=== PATIENT | male | born 1930 | race Caucasian/White ===

== ENCOUNTER 2016-11-19 13:49 | Emergency (ER) | payer MEDICARE, BC ==
[2016-11-19] MEDS ORDERED: HYDROmorphone 2 MG/ML SDV IM ONE (14:11)
[2016-11-19] MEDS ORDERED: Metoclopramide 10 MG/2 ML SDV SUBCUT ONE (14:12)
[2016-11-19] MEDS ORDERED: Metoclopramide 10 MG/2 ML SDV IV ONE (15:05)
[2016-11-19] MEDS ORDERED: fentaNYL 100 MCG/2 ML SDV IVPUSH ONE (15:06)
[2016-11-19] MEDS ORDERED: Sodium Chloride 0.9% 500 ML IV ONE (15:08)
[2016-11-19] MEDS ORDERED: Ketorolac 30 MG/ML SDV ONE (15:22)
[2016-11-19] MEDS ORDERED: Ketorolac 30 MG/ML SDV IVPUSH ONE (15:33)
[2016-11-19] MEDS ORDERED: Sodium Chloride 0.9% 1,000 ML IV SCH (15:38)
[2016-11-19] MEDS ORDERED: Sodium Chloride 0.9% 250 ML IV SCH (15:45)
--- NOTE | 2016-11-19 15:56 | CR ---
INDICATION: Fell 5-6 feet, picking apples. PELVIS WITH LEFT HIP: Frontal view of the pelvis with frontal and lateral views of the left hip revealed fractures through the superior and inferior pubic rami on the left. The inferior pubic ramus fracture appears to be somewhat comminuted, with an additional fracture site closer to the acetabulum - fracture in two places, which is severely overridden. The more proximal - medial inferior pubic fracture site appears to be in adequate position and alignment. At the superior pubic ramus fracture there is at least 1 cm cranial offset of the lateral fracture fragment. The hip joint itself, showed no evidence of fracture or dislocation, with intact appearing femurs bilaterally. Degenerative changes are noted at the hip joints with the joint space on the left very minimally diminished. Hypertrophic changes at both hip joints are noted. Overall, there appears to be some demineralization, suggesting osteoporosis - correlate clinically. Severe degenerative disk disease and moderate hypertrophic degenerative changes are noted in the visualized lumbosacral spine. IMPRESSION: 1. Fractures with deformity inferior pubic ramus. 2. Fracture with deformity superior pubic ramus. 3. Osteoarthritis hip joints with mild loss of joint space cranial laterally on the left. 4. Demineralization suggested, compatible with osteoporosis - correlate clinically. 5. Degenerative changes and disk disease visualized lumbosacral spine, L4-5, L5 -S1. 6. ASD with iliac and femoral artery calcifications. MTDD
[2016-11-19] MEDS ORDERED: Phytonadione 5 MG in Sodium Chloride 0.9% 50 ML IV ONE (15:59)
--- NOTE | 2016-11-19 16:10 | CR ---
INDICATION: Fell 5-6 feet, picking apples. LEFT SHOULDER: Three views of the left shoulder were obtained, 11/19/2016, and compared with a chest x-ray from 12/16/2013. There is an appearance of advancing hypertrophic degenerative changes with joint space loss at the glenohumeral joint. There also appears to be advancing impingement of the humerus on the acromion with slight sclerosis at the undersurface of the acromion and cranial deviation of the humerus with respect to the acromion and glenohumeral joint. A definite fracture or dislocation was not identified. The bones appear to be somewhat porotic, suggesting the possibility of demineralization - osteoporosis - osteomalacia. There are probable old healed rib fractures at the 2nd and 6th left ribs, which were apparently present on the previous examination of the chest in 2013. IMPRESSION: Progressive degenerative changes and probable impingement, suggesting rotator cuff degeneration and/or injury. MTDD
[2016-11-19] MEDS ORDERED: Potassium Chloride 10 MEQ in Premix Bag 1 BAG IV ONE (16:11)
[2016-11-19] MEDS ORDERED: Potassium Chloride 100 ML ONE (16:57)
[2016-11-19 17:43] VITALS: BP 76/49
--- NOTE | 2016-11-22 09:43 | ER ---
DATE SEEN: 11/19/2016 CHIEF COMPLAINT: Left shoulder and hip pain after having fallen from an apple tree, 5-6 feet from a step ladder while picking apples. The patient lay on the ground. He was sweating, diaphoretic, lightheaded, and denies chest pain, shortness of breath, cough or chest wall discomfort or abdominal discomfort or cervical, thoracic, or lumbar spine pain. He has marked pain in his left hip and less pain in his shoulder. Denies any paresis in left upper extremity. PAST MEDICAL HISTORY: Significant for hypokalemia, inguinal herniorrhaphy, chronic atrial fibrillation, and uses warfarin on daily basis for his atrial fibrillation. 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 PAST SURGICAL HISTORY: Cataract surgery, colonoscopy, left shoulder surgery, GERD, and venous thromboembolism. ALLERGIES: Acetaminophen and hydrocodone bitartrate. REVIEW OF SYSTEMS: HEENT: Decreased vision. Decreased hearing. Denies headache, denies difficulty swallowing. No dental complaints. No jaw complaints. CARDIORESPIRATORY: Has irregular heartbeat and is on an anticoagulant, Warfarin. Denies shortness of breath or chest pain, but he does have an irregular heartbeat. Denies dizziness, syncope, or presyncope symptoms. GASTROINTESTINAL: Denies GERD, constipation, blood in the stool, black tarry stool, change in bowels, or diarrhea. : No prostatism, has increased nocturia, but denies difficulty passing urine. MUSCULOSKELETAL: Negative except for arthritis. NEURO: Negative. No previous stroke or seizure or head injury. PHYSICAL EXAMINATION: VITAL SIGNS: Blood pressure 120/65, heart rate 86 irregularly irregular, respirations 16, oxygen saturation 94%, and temperature is 36.3 degrees centigrade. GENERAL: Alert man, in mild distress. He wants more pain medicines for his shoulder and his hip. As the time proceeded, his hip pain became more and more uncomfortable compared to his left shoulder. HEENT: PERRLA intact. Pharynx without abnormality. No gag. No abnormality. The uvula is midline. No bruits in neck. LUNGS: Clear without rales, rhonchi, or wheezes. HEART: S1, S2. There is irregularly irregular rhythm. ABDOMEN: Soft. No guarding. No discomfort. No splenomegaly. No chest wall discomfort. No organomegaly in the abdomen. LOWER EXTREMITIES: No external rotation of the left hip. Dorsalis pedis intact. Can move his knee, but it causes severe pain in his left hip. Right leg with dorsalis pedis intact. Deep tendon reflexes symmetrical in upper and lower extremities. Cranial nerves 2 through 12 intact. EKG: He has several EKGs performed with old inferior infarct and anterior infarct with poor R-wave progression. He has new anterior wall anteroseptal ischemia compared to his previous EKG, 12/16/2013. Occasional PVC. Atrial fibrillation, noted. Heart rate 129. IMAGING: X-ray reveals an anterior pillar fracture with the acetabulum intact, femoral head intact, and no femoral fracture. This has broken the pelvis away from the medial, superior, and inferior pubis ramus. This is displaced by 11 mm superiorly. It is a partial open book fracture. I did not see any fracture to the sacrum. LABORATORY FINDINGS: Hemoglobin 15.4, white count 14,800, PMNs 84, bands 1, lymphocytes 13, monocytes 1. INR 1.86, PT 29.5. Sodium 139, potassium 3.3, chloride 99, GFR 57, glucose 147, bilirubin 1.5. AST is 47. ALT slightly elevated at 35. Remainder of automated chemistry, TSH is 2.77. DIAGNOSIS: 1. Partial open book fracture with risk for extensive blood loss because of anticoagulation. He already has blood pressures dropped to the 90s over 60s. His blood pressure was normal when he came in, it was 120/65. 2. New ischemia pattern, left lateral wall and anteroseptal wall. 3. 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 4. Gastroesophageal reflux disease. 5. Previous history of venous thromboembolism. He is on anticoagulants for his atrial fibrillation and venous sinus thromboembolism. 6. Previous shoulder surgery. 7. Cataract surgery. 8. Colonoscopy. 9. Presently he has hypokalemia. ER COURSE: 1. The patient was given Dilaudid; pressure dropped. It is indeterminate if his pressure dropped because of his Dilaudid or if there is bleeding from the anticoagulants and also extensive open fracture, I believe it is the latter. 2. The patient received 10 mEq of potassium IV, in a rider. 3. The patient was flushed with a liter and a half of fluid. 4. Typed and crossed for blood and given a unit of blood. The ambulance had to leave early, and by the time the O-positive blood was ordered, the typed and crossed unit was ready. Other information: He is status post skin graft, left lower extremity, years ago, and his status was discussed with Dr. Castellano, ER physician, at 1213 hours. The patient has received 5 mg of vitamin K IV infusion started. Time table - [address]. /[id number] [id number] SINA/ERNESTO
== END 2016-11-19 17:05 ==
LOC: FB.ED 13:49
DX: S32.502A Unspecified fracture of left pubis, initial encounter for closed fracture (principal); K21.9 Gastro-esophageal reflux disease without esophagitis; M16.12 Unilateral primary osteoarthritis, left hip; I48.91 Unspecified atrial fibrillation; E87.6 Hypokalemia; Z98.49 Cataract extraction status, unspecified eye; W19.XXXA Unspecified fall, initial encounter; Z79.01 Long term (current) use of anticoagulants
CPT/HCPCS: 36415; 36430; 73030; 73501; 80053; 84443; 84484; 85025; 85610; 86850; 86900; 86901; 86920; 86922; 93005; 96361; 96365; 96372; 96374; 96375; 99285; J1170; J1885; J2765; J3430; J3480; J7040; J7050; P9016; 99284

== ENCOUNTER 2016-11-24 10:18 | Inpatient (IN) | payer MEDICARE, BC ==
[2016-11-24] MEDS ORDERED: Warfarin Sliding Scale PO SCH (16:45)
--- NOTE | 2016-11-24 20:00 | PCM.HP ---
H&P History of Present Illness - General Date of Service: 11/24/16 Admit Problem/Dx: Admission Diagnosis/Problem Admission Diagnosis/Problem Weakness Source of Information: Patient, Old Records - History of Present Illness Initial Comments - Free Text/Narative: Patient is an 86-year-old male who was picking apples for maturity on a ladder and he fell onto the left side of his body. He sustained a left superior and inferior pubic ramus fractures and left ischial fractures as well as a rectal sheath hematoma. He was hospitalized from 11/19/2016 until today 1018 when he was discharged to return here for physical therapy and occupational therapy. He also sustained a left scapular fracture. He is currently feeling very well considering everything is been through. When at rest he has no pain. He is uncomfortable with movement but has been doing well standing on his own and adjusting himself in bed. Left shoulder Pain Score (Numeric/FACES): 2 Pelvic area Pain Score (Numeric/FACES): 2 - Related Data Allergies/Adverse Reactions: Allergies Allergy/AdvReac Type Severity Reaction Status Date / Time acetaminophen Allergy Hives Verified 11/24/16 15:02 hydrocodone bitartrate Allergy NAUSEA, Verified 11/24/16 15:02 [From Lortab] VOMITING Home Medications: Home Meds Aspirin [Mariel Chewable Aspirin] 81 mg PO DAILY 07/18/13 [History] Calcium Carb & Citrate/Vit D3 [Calcium + D3 ER Tablet] 1 each PO DAILY 07/18/13 [History] Finasteride [Proscar] 5 mg PO DAILY 07/18/13 [History] Flaxseed Oil [Flaxseed] 1,000 mg PO BEDTIME 07/18/13 [History] Gluc 2KCl/Chondr/Noe Hy/Hy Ac [Glucosamine & Chondroitin Cap] 1 each PO BID 12/21 [History] Multivitamin [Multivitamins] 1 each PO DAILY 07/18/13 [History] C[place]ton-3 Fatty Acids [[place]ton-3] 1,000 mg PO WITHDINNER 07/18/13 [History] Omeprazole 20 mg PO ACDINNER 07/18/13 [History] Triamterene/Hydrochlorothiazid [Triamterene-HCTZ 37.5-25 MG] 1 cap PO DAILY 12/21 [History] Vitamin E 200 units PO DAILY 12/11/13 [History] Warfarin Sodium [Jantoven] 7.5 mg PO SUMOWEFR 01/17/14 [History] Docusate Sodium 200 mg PO DAILY 11/25/14 [History] Furosemide 40 mg PO DAILY@1800 11/25/14 [History] Alfuzosin HCl [Alfuzosin HCl ER] 20 mg PO Q48H 11/19/16 [History] Carboxymethylcellulose Sodium [Refresh Tears] 1 drop EYEBOTH DAILY PRN 11/24/16 [History] Ibuprofen 400 mg PO Q6H PRN 11/24/16 [History] Triamcinolone Acetonide [Triamcinolone Acetonide 0.025%] 1 applic TOP BID PRN [History] Warfarin [Coumadin] 5 mg PO TUTHSA 11/24/16 [History] oxyCODONE 5 mg PO Q4H PRN 11/24/16 [History] Past Medical History HEENT History: Reports: Cataract, Hard of Hearing Other HEENT History: has bilat hearing aids. Only wears when goes to [employer]..not present with patient Cardiovascular History: Reports: Afib, Hypertension Other Gastrointestinal History: PRESENT LEFT HERNIA BULDGE Genitourinary History: Reports: Prostate Disorder Other Genitourinary History: PT VOICED A URGENCY WITH URINATION Musculoskeletal History: Reports: Arthritis Other Musculoskeletal History: GENERALIZED ARTHRITIS Hematologic History: Reports: Anticoagulation Therapy Other Hematologic History: takes Coumadin - Infectious Disease History Infectious Disease History: Reports: Chicken Pox, Measles, Mumps - Past Surgical History HEENT Surgical History: Reports: Cataract Surgery Other HEENT Surgeries/Procedures: bilat cataract surgery GI Surgical History: Reports: Colonoscopy, Hernia Repair/Other Male Surgical History: Reports: None Musculoskeletal Surgical History: Reports: None Dermatological Surgical History: Reports: Skin Graft, Other (See Below) Social & Family History - Family History Family Medical History: Noncontributory - Tobacco Use Smoking Status *Q: Never Smoker Second Hand Smoke Exposure: No - Caffeine Use Caffeine Use: Reports: None Other Caffeine Use: Occassional coffee drinker. - Alcohol Use Days Per Week of Alcohol Use: 1 Number of Drinks Per Day: 1 Total Drinks Per Week: 1 - Recreational Drug Use Recreational Drug Use: No - Living Situation & Occupation Living situation: Reports: (Lives with his . He is a nonsmoker, very physically active at home.) H&P Review of Systems - Review of Systems: Review Of Systems: See Below General: Reports: No Symptoms HEENT: Reports: No Symptoms Pulmonary: Reports: No Symptoms Cardiovascular: Reports: No Symptoms Gastrointestinal: Reports: No Symptoms Genitourinary: Reports: Frequency (Frequent urination at night. Does normally take his Lasix at suppertime at home so he doesn't have to pee during the day) Musculoskeletal: Reports: Shoulder Pain, Arm Pain, Leg Pain, Other (pelvic pain with movement.) Skin: Reports: Bruising (extensive.) Exam - Exam Exam: See Below - Vital Signs Vital Signs: Last Vital Signs Temp 36.7 C 11/24/16 16:00 Pulse 93 11/24/16 16:00 Resp 18 11/24/16 16:00 BP 140/71 11/24/16 16:00 Pulse Ox 98 11/24/16 16:00 Weight: 81.692 kg - Exam General: Alert, Oriented, Cooperative, Mild Distress (with movement.) HEENT: PERRLA, Conjunctiva Clear, Mucosa Moist & Christie, Posterior Pharynx Clear Neck: Supple Lungs: Clear to Auscultation, Normal Respiratory Effort Cardiovascular: Regular Rate, Regular Rhythm, Normal S1, Normal S2 GI/Abdominal Exam: Normal Bowel Sounds, Soft, Non-Tender, No Distention (Male) Exam: Scrotal Swelling (significant bruising) Back Exam: Other (bruising, tenderness over the left scapula. No midline pain to palpation.) Extremities: No Pedal Edema, Other (bruising throughout.) - Patient Data Lab Results Last 24 hrs: see previous records from [place]. *Q Meaningful Use (ADM) - VTE *Q VTE Criteria *Q: - Stroke *Q Stroke Criteria *Q: - AMI *Q AMI Criteria *Q: - Problem List (1) Pelvic fracture SNOMED Code(s): 69862769 ICD Code: S32.9XXA - FRACTURE OF UNSP PARTS OF LUMBOSACRAL SPINE AND PELVIS, INIT Status: Acute Current Visit: Yes Problem Details: PT/OT, pain management. (2) Left scapula fracture SNOMED Code(s): 6035978 ICD Code: S42.102A - FRACTURE OF UNSP PART OF SCAPULA, LEFT SHOULDER, INIT Status: Acute Current Visit: Yes Problem Details: PT/OT, pain management. (3) Weakness SNOMED Code(s): 56587389 ICD Code: R53.1 - WEAKNESS Status: Acute Current Visit: Yes Problem Details: PT/OT, patient excellent rehab candidate. (4) Chronic anticoagulation SNOMED Code(s): 080410301 ICD Code: Z79.01 - JAIL (CURRENT) USE OF ANTICOAGULANTS Status: Acute Current Visit: Yes Problem Details: Pharmacy to follow, 2-3 goal for hx of DVT. (5) Encounter for monitoring diuretic therapy SNOMED Code(s): 465622208 ICD Code: Z51.81 - ENCOUNTER FOR THERAPEUTIC DRUG LEVEL MONITORING; Z79.899 - OTHER JAIL (CURRENT) DRUG THERAPY Status: Acute Current Visit: Yes Problem Details: continue current diuretics. He would like to try taking lasix at noon for less night voiding. Not clear to me if he has CHF as not on his list. (6) BPH associated with nocturia SNOMED Code(s): 857818982 ICD Code: N40.1 - BENIGN PROSTATIC HYPERPLASIA WITH LOWER URINARY TRACT SYMP ; R35.1 - NOCTURIA Status: Acute Current Visit: Yes Problem Details: continue home meds. Problem List Initiated/Reviewed/Updated: Yes Orders Last 24hrs: Active Orders 24 hr Category Date Time Status Admission Status [Patient Status] [ADT] Routine ADT 11/24/16 13:20 Active Oxygen Therapy [RC] PRN Care 11/24/16 13:20 Active Up ad Melissa [RC] ASDIRECTED Care 11/24/16 13:20 Active VTE/DVT Education [RC] Per Unit Routine Care 11/24/16 13:20 Active Vital Signs [RC] DAILY Care 11/24/16 13:20 Active Consult to Conditioner Tumbler [CONS] Routine Cons 11/24/16 13:20 Active OT Evaluation and Treatment [CONS] Routine Cons 11/24/16 13:20 Active PT Evaluation and Treatment [CONS] Routine Cons 11/24/16 13:20 Active Regular Diet [DIET] Diet 11/24/16 Lunch Active INR,PT,PROTHROMBIN TIME [COAG] DAILY Lab 11/25/16 16:40 Ordered INR,PT,PROTHROMBIN TIME [COAG] DAILY Lab 11/26/16 16:40 Ordered INR,PT,PROTHROMBIN TIME [COAG] DAILY Lab 11/27/16 16:40 Ordered INR,PT,PROTHROMBIN TIME [COAG] DAILY Lab 11/28/16 16:40 Ordered INR,PT,PROTHROMBIN TIME [COAG] DAILY Lab 11/29/16 16:40 Ordered INR,PT,PROTHROMBIN TIME [COAG] DAILY Lab 11/30/16 16:40 Ordered INR,PT,PROTHROMBIN TIME [COAG] DAILY Lab 12/01/16 16:40 Ordered Alfuzosin [Uroxatral] Med 11/24/16 21:00 Active 10 mg PO BEDTIME Warfarin Sliding Scale [Coumadin Sliding Scale] Med 11/24/16 16:45 Pending See Dose Instructions PO ASDIRECTED Resuscitation Status Routine Resus Stat 11/24/16 16:10 Ordered Medication Orders Alfuzosin HCl (Uroxatral) 10 mg PO BEDTIME EZEQUIEL Warfarin Sodium (Coumadin Sliding Scale) 0 each PO ASDIRECTED EZEQUIEL Assessment/Plan Comment:: CODE STATUS discussed at length with the patient. This however to stop bleeding , or he were to stop beating, because of some type of illness or injury, he would not want resuscitation. No CPR, no intubation, he's ready to go "I am in the good Lord's hands." Thus DNR/DNI.
[2016-11-24] MEDS ORDERED: Carboxymethylcellulose Sodium 0.5% Ophth Soln 15 ML Bottle EYEBOTH PRN (20:03)
[2016-11-24] MEDS: Alfuzosin 10 MG Tab.ER PO SCH (20:30)
[2016-11-24] MEDS: oxyCODONE 5 MG Tab PO PRN (21:31)
[2016-11-25] MEDS: oxyCODONE 5 MG Tab PO PRN ×3 (05:14→18:20)
[2016-11-25] MEDS: Pantoprazole 40 MG Tab.CR PO SCH (08:10)
[2016-11-25] MEDS: Docusate Sodium 100 MG Cap PO SCH (08:10)
[2016-11-25] MEDS: Finasteride 5 MG Tab PO SCH (08:10)
[2016-11-25] MEDS: Hydrochlorothiazide/Triamterene 25-37.5 Tab PO SCH (08:10)
[2016-11-25] MEDS: Aspirin 81 MG Tab.Chew PO SCH (08:10)
[2016-11-25] MEDS: Furosemide 40 MG Tab PO SCH (12:22)
[2016-11-25] MEDS ORDERED: Warfarin 10 MG Tab PO SCH (16:00)
[2016-11-25] MEDS: Alfuzosin 10 MG Tab.ER PO SCH (21:37)
[2016-11-26] MEDS: oxyCODONE 5 MG Tab PO PRN ×3 (07:51→17:42)
[2016-11-26] MEDS: Pantoprazole 40 MG Tab.CR PO SCH (07:51)
[2016-11-26] MEDS: Finasteride 5 MG Tab PO SCH (09:27)
[2016-11-26] MEDS: Docusate Sodium 100 MG Cap PO SCH (09:27)
[2016-11-26] MEDS: Aspirin 81 MG Tab.Chew PO SCH (09:27)
[2016-11-26] MEDS: Hydrochlorothiazide/Triamterene 25-37.5 Tab PO SCH (09:27)
[2016-11-26] MEDS: Furosemide 40 MG Tab PO SCH (12:56)
[2016-11-26] MEDS ORDERED: Warfarin 5 MG Tab PO SCH (16:00)
[2016-11-26] MEDS: Bisacodyl 5 MG Tab PO PRN (17:42)
[2016-11-26] MEDS: Alfuzosin 10 MG Tab.ER PO SCH (20:12)
[2016-11-27] MEDS: Pantoprazole 40 MG Tab.CR PO SCH (07:36)
[2016-11-27] MEDS: oxyCODONE 5 MG Tab PO PRN ×3 (07:36→21:04)
[2016-11-27] MEDS: Hydrochlorothiazide/Triamterene 25-37.5 Tab PO SCH (08:48)
[2016-11-27] MEDS: Finasteride 5 MG Tab PO SCH (08:48)
[2016-11-27] MEDS: Aspirin 81 MG Tab.Chew PO SCH (08:48)
[2016-11-27] MEDS: Docusate Sodium 100 MG Cap PO SCH (08:48)
[2016-11-27] MEDS: Bisacodyl 5 MG Tab PO PRN (10:30)
[2016-11-27] MEDS: Furosemide 40 MG Tab PO SCH (12:39)
[2016-11-27] MEDS ORDERED: Warfarin 5 MG Tab PO SCH (16:00)
[2016-11-27] MEDS: Polyethylene Glycol 3350 Powder 17 GM Packet PO PRN (21:04)
[2016-11-28] MEDS: Pantoprazole 40 MG Tab.CR PO SCH (07:57)
[2016-11-28] MEDS: oxyCODONE 5 MG Tab PO PRN ×2 (07:57→21:55)
[2016-11-28] MEDS ORDERED: Bisacodyl 10 MG Supp RECTAL PRN (08:02)
[2016-11-28] MEDS: Aspirin 81 MG Tab.Chew PO SCH (08:43)
[2016-11-28] MEDS: Docusate Sodium 100 MG Cap PO SCH (08:43)
[2016-11-28] MEDS: Finasteride 5 MG Tab PO SCH (08:44)
[2016-11-28] MEDS: Hydrochlorothiazide/Triamterene 25-37.5 Tab PO SCH (08:44)
[2016-11-28] MEDS: Furosemide 40 MG Tab PO SCH (11:08)
[2016-11-28] MEDS ORDERED: Warfarin 5 MG Tab PO SCH (16:00)
[2016-11-28] MEDS ORDERED: Promethazine 25 MG Tab PO ONE (18:59)
[2016-11-28] MEDS: Alfuzosin 10 MG Tab.ER PO SCH (20:05)
[2016-11-29] MEDS: Aspirin 81 MG Tab.Chew PO SCH (08:39)
[2016-11-29] MEDS: Pantoprazole 40 MG Tab.CR PO SCH (08:39)
[2016-11-29] MEDS: Docusate Sodium 100 MG Cap PO SCH (08:40)
[2016-11-29] MEDS: Finasteride 5 MG Tab PO SCH (08:40)
[2016-11-29] MEDS: Hydrochlorothiazide/Triamterene 25-37.5 Tab PO SCH (08:40)
[2016-11-29] MEDS: oxyCODONE 5 MG Tab PO PRN ×3 (08:41→23:37)
[2016-11-29] MEDS: Furosemide 40 MG Tab PO SCH (11:56)
[2016-11-29] MEDS ORDERED: Warfarin 2.5 MG Tab PO SCH (16:00)
[2016-11-30] MEDS: oxyCODONE 5 MG Tab PO PRN ×2 (07:37→15:03)
[2016-11-30] MEDS: Pantoprazole 40 MG Tab.CR PO SCH (07:40)
--- NOTE | 2016-11-30 08:32 | PCM.PN ---
- General Info Date of Service: 11/30/16 Admission Dx/Problem (Free Text): This is an 86-year-old male patient that fell off a ladder broke his pelvis in 2 places and his left scapula. Patient is doing well. Pain is pre-well- controlled. His work with PT and OT and has no concerns. He denies chest pain, shortness of breath, fevers or chills. - Patient Data Vitals - Most Recent: Last Vital Signs Temp 98.3 F 11/29/16 08:26 Pulse 84 11/28/16 07:50 Resp 18 11/29/16 08:26 BP 110/68 11/29/16 08:26 Pulse Ox 93 L 11/29/16 08:26 Weight - Most Recent: 180 lb 1.6 oz I&O - Last 24 Hours: Intake & Output 11/29/16 11/30/16 11/30/16 22:59 06:59 14:59 Intake Total 400 Output Total 900 850 Balance -500 -850 Lab Results Last 24 Hours: Laboratory Results - last 24 hr 11/30/16 Range/Units 06:55 PT 18.9 H (8.7-11.1) INR 1.85 H (0.89-1.13) Med Orders - Current: Current Medications Alfuzosin HCl (Uroxatral) 20 mg PO Q48H [facility] Last Admin: 11/28/16 20:05 Dose: 20 mg Artificial Tears (Refresh Tears 0.5%) 0 ml EYEBOTH DAILY PRN PRN Reason: Dry Eyes Aspirin (Aspirin) 81 mg PO DAILY [facility] Last Admin: 11/29/16 08:39 Dose: 81 mg Bisacodyl (Dulcolax) 10 mg PO DAILY PRN PRN Reason: Constipation Last Admin: 11/27/16 10:30 Dose: 10 mg Bisacodyl (Dulcolax) 10 mg RECTAL DAILY PRN PRN Reason: Constipation Last Admin: 11/28/16 08:40 Dose: 10 mg Docusate Sodium (Colace) 200 mg PO DAILY [facility] Last Admin: 11/29/16 08:40 Dose: 200 mg Finasteride (Proscar) 5 mg PO DAILY [facility] Last Admin: 11/29/16 08:40 Dose: 5 mg Furosemide (Lasix) 40 mg PO DAILY@1200 [facility] Last Admin: 11/29/16 11:56 Dose: 40 mg Oxycodone HCl (Oxycodone) 5 mg PO Q4H PRN PRN Reason: SEVERE PAIN Last Admin: 11/30/16 07:37 Dose: 5 mg Pantoprazole Sodium (Protonix) 40 mg PO DAILY@0730 [facility] Last Admin: 11/30/16 07:40 Dose: 40 mg Polyethylene Glycol (Miralax) 17 gm PO BEDTIME PRN PRN Reason: Constipation Last Admin: 11/27/16 21:04 Dose: 17 gm Triamterene/HCTZ (Maxzide 25-37.5 Mg) 1 each PO DAILY [facility] Last Admin: 11/29/16 08:40 Dose: 1 each Warfarin Sodium (Coumadin Sliding Scale) 0 each PO ASDIRECTED [facility] Discontinued Medications Alfuzosin HCl (Uroxatral) 10 mg PO BEDTIME [facility] Last Admin: 11/25/16 21:37 Dose: 10 mg Promethazine HCl (Phenergan) 25 mg PO NOW ONE Stop: 11/28/16 19:00 Last Admin: 11/28/16 20:06 Dose: Not Given Warfarin Sodium (Coumadin) 10 mg PO 1600 [facility] Stop: 11/25/16 20:00 Last Admin: 11/25/16 15:38 Dose: 10 mg Warfarin Sodium (Coumadin) 5 mg PO 1600 [facility] Stop: 11/26/16 20:00 Last Admin: 11/26/16 16:46 Dose: 5 mg Warfarin Sodium (Coumadin) 5 mg PO 1600 [facility] Stop: 11/27/16 20:30 Last Admin: 11/27/16 16:09 Dose: 5 mg Warfarin Sodium (Coumadin) 5 mg PO 1600 [facility] Stop: 11/28/16 16:01 Last Admin: 11/28/16 15:47 Dose: 5 mg Warfarin Sodium (Coumadin) 7.5 mg PO 1600 [facility] Stop: 11/29/16 20:30 Last Admin: 11/29/16 15:41 Dose: 7.5 mg - Exam General: Alert, Oriented Neck: Supple Lungs: Clear to Auscultation, Normal Respiratory Effort Cardiovascular: Regular Rate, Regular Rhythm, No Murmurs - Problem List & Annotations (1) Left scapula fracture SNOMED Code(s): 0715641 Code(s): S42.102A - FRACTURE OF UNSP PART OF SCAPULA, LEFT SHOULDER, INIT Status: Acute Current Visit: Yes Annotation/Comment:: PT/OT, pain management. (2) Pelvic fracture SNOMED Code(s): 57558008 Code(s): S32.9XXA - FRACTURE OF UNSP PARTS OF LUMBOSACRAL SPINE AND PELVIS, INIT Status: Acute Current Visit: Yes Annotation/Comment:: PT/OT, pain management. (3) Weakness SNOMED Code(s): 06001462 Code(s): R53.1 - WEAKNESS Status: Acute Current Visit: Yes Annotation/ Comment:: PT/OT, patient excellent rehab candidate. - Problem List Review Problem List Initiated/Reviewed/Updated: Yes - My Orders Last 24 Hours: My Active Orders 11/29/16 13:01 ALECIA Hose [Antiembolic Hose] [.] Routine - Plan Plan:: Continue current care.
[2016-11-30] MEDS: Finasteride 5 MG Tab PO SCH (09:02)
[2016-11-30] MEDS: Docusate Sodium 100 MG Cap PO SCH (09:02)
[2016-11-30] MEDS: Aspirin 81 MG Tab.Chew PO SCH (09:02)
[2016-11-30] MEDS: Hydrochlorothiazide/Triamterene 25-37.5 Tab PO SCH (09:02)
[2016-11-30] MEDS: Triamcinolone Acetonide 0.025% Crm 15 GM Tube TOP PRN ×2 (10:12→20:23)
[2016-11-30] MEDS: Cephalexin 500 MG Cap PO SCH ×3 (10:12→20:22)
[2016-11-30] MEDS: Furosemide 40 MG Tab PO SCH (12:15)
[2016-11-30] MEDS ORDERED: Warfarin 10 MG Tab PO SCH (16:00)
[2016-11-30] MEDS: Polyvinyl Alcohol 1.4% Ophth Soln 15 ML Bottle EYEBOTH PRN (16:43)
[2016-11-30] MEDS: Alfuzosin 10 MG Tab.ER PO SCH (20:22)
[2016-12-01] MEDS: oxyCODONE 5 MG Tab PO PRN ×3 (00:46→17:30)
[2016-12-01] MEDS: Aluminum Hydroxide/Magnesium Hydroxide Susp 30 ML Cup PO PRN (01:00)
[2016-12-01] MEDS: Pantoprazole 40 MG Tab.CR PO SCH (07:37)
[2016-12-01] MEDS: Triamcinolone Acetonide 0.025% Crm 15 GM Tube TOP PRN (07:50)
[2016-12-01] MEDS: Bisacodyl 5 MG Tab PO PRN (09:01)
[2016-12-01] MEDS: Aspirin 81 MG Tab.Chew PO SCH (09:03)
[2016-12-01] MEDS: Docusate Sodium 100 MG Cap PO SCH (09:03)
[2016-12-01] MEDS: Finasteride 5 MG Tab PO SCH (09:04)
[2016-12-01] MEDS: Cephalexin 500 MG Cap PO SCH ×3 (09:04→20:02)
[2016-12-01] MEDS: Hydrochlorothiazide/Triamterene 25-37.5 Tab PO SCH (09:04)
[2016-12-01] MEDS: Furosemide 40 MG Tab PO SCH (11:52)
[2016-12-01] MEDS ORDERED: Warfarin 5 MG, Warfarin 2.5 MG PO SCH ×2 (16:00)
[2016-12-02] MEDS: Pantoprazole 40 MG Tab.CR PO SCH (07:39)
[2016-12-02] MEDS: Finasteride 5 MG Tab PO SCH (09:37)
[2016-12-02] MEDS: Hydrochlorothiazide/Triamterene 25-37.5 Tab PO SCH (09:37)
[2016-12-02] MEDS: Docusate Sodium 100 MG Cap PO SCH (09:37)
[2016-12-02] MEDS: Cephalexin 500 MG Cap PO SCH ×3 (09:38→20:15)
[2016-12-02] MEDS: Aspirin 81 MG Tab.Chew PO SCH (09:38)
[2016-12-02] MEDS: Furosemide 40 MG Tab PO SCH (12:26)
[2016-12-02] MEDS ORDERED: Warfarin 5 MG, Warfarin 2.5 MG PO SCH ×2 (16:00)
[2016-12-02] MEDS: Warfarin 5 MG Tab PO SCH (16:42)
[2016-12-02] MEDS: Alfuzosin 10 MG Tab.ER PO SCH (20:15)
[2016-12-03] MEDS ORDERED: Triamcinolone Acetonide 0.1% Crm 15 GM Tube ONE (06:43)
[2016-12-03] MEDS: Pantoprazole 40 MG Tab.CR PO SCH (07:47)
[2016-12-03] MEDS: Cephalexin 500 MG Cap PO SCH ×3 (08:38→20:19)
[2016-12-03] MEDS: Aspirin 81 MG Tab.Chew PO SCH (08:38)
[2016-12-03] MEDS: Docusate Sodium 100 MG Cap PO SCH (08:38)
[2016-12-03] MEDS: Hydrochlorothiazide/Triamterene 25-37.5 Tab PO SCH (08:39)
[2016-12-03] MEDS: Finasteride 5 MG Tab PO SCH (08:39)
[2016-12-03] MEDS: Furosemide 40 MG Tab PO SCH (12:48)
[2016-12-03] MEDS: Warfarin 5 MG, Warfarin 2.5 MG PO SCH ×2 (17:12)
[2016-12-04] MEDS: Pantoprazole 40 MG Tab.CR PO SCH (08:11)
[2016-12-04] MEDS: Docusate Sodium 100 MG Cap PO SCH (08:12)
[2016-12-04] MEDS: Aspirin 81 MG Tab.Chew PO SCH (08:12)
[2016-12-04] MEDS: Cephalexin 500 MG Cap PO SCH ×3 (08:13→20:43)
[2016-12-04] MEDS: Hydrochlorothiazide/Triamterene 25-37.5 Tab PO SCH (08:13)
[2016-12-04] MEDS: Finasteride 5 MG Tab PO SCH (08:13)
[2016-12-04] MEDS: Triamcinolone Acetonide 0.025% Crm 15 GM Tube TOP PRN (08:20)
[2016-12-04] MEDS: Furosemide 40 MG Tab PO SCH (12:18)
[2016-12-04] MEDS: Warfarin 5 MG Tab PO SCH (15:53)
[2016-12-04] MEDS: oxyCODONE 5 MG Tab PO PRN (19:39)
[2016-12-04] MEDS: Alfuzosin 10 MG Tab.ER PO SCH (20:43)
[2016-12-05] MEDS: Pantoprazole 40 MG Tab.CR PO SCH (07:27)
[2016-12-05] MEDS: Cephalexin 500 MG Cap PO SCH ×3 (08:46→20:41)
[2016-12-05] MEDS: Docusate Sodium 100 MG Cap PO SCH (08:46)
[2016-12-05] MEDS: Aspirin 81 MG Tab.Chew PO SCH (08:46)
[2016-12-05] MEDS: Hydrochlorothiazide/Triamterene 25-37.5 Tab PO SCH (08:46)
[2016-12-05] MEDS: Finasteride 5 MG Tab PO SCH (08:47)
[2016-12-05] MEDS: Triamcinolone Acetonide 0.025% Crm 15 GM Tube TOP PRN (09:00)
[2016-12-05] MEDS: oxyCODONE 5 MG Tab PO PRN ×3 (09:29→20:41)
[2016-12-05] MEDS: Furosemide 40 MG Tab PO SCH (12:28)
[2016-12-05] MEDS: Warfarin 5 MG, Warfarin 2.5 MG PO SCH ×2 (16:34)
[2016-12-06] MEDS: Pantoprazole 40 MG Tab.CR PO SCH (07:12)
[2016-12-06] MEDS: Aspirin 81 MG Tab.Chew PO SCH (09:12)
[2016-12-06] MEDS: Docusate Sodium 100 MG Cap PO SCH (09:12)
[2016-12-06] MEDS: Cephalexin 500 MG Cap PO SCH ×3 (09:13→20:06)
[2016-12-06] MEDS: Hydrochlorothiazide/Triamterene 25-37.5 Tab PO SCH (09:13)
[2016-12-06] MEDS: Triamcinolone Acetonide 0.025% Crm 15 GM Tube TOP PRN (09:13)
[2016-12-06] MEDS: Finasteride 5 MG Tab PO SCH (09:13)
[2016-12-06] MEDS: Furosemide 40 MG Tab PO SCH (12:19)
[2016-12-06] MEDS: Warfarin 5 MG, Warfarin 2.5 MG PO SCH ×2 (15:57)
[2016-12-06] MEDS: Polyethylene Glycol 3350 Powder 17 GM Packet PO PRN (19:27)
[2016-12-06] MEDS: oxyCODONE 5 MG Tab PO PRN (20:06)
[2016-12-06] MEDS: Alfuzosin 10 MG Tab.ER PO SCH (20:06)
[2016-12-07] MEDS: Pantoprazole 40 MG Tab.CR PO SCH (07:23)
[2016-12-07] MEDS: Aluminum Hydroxide/Magnesium Hydroxide Susp 30 ML Cup PO PRN (08:17)
[2016-12-07] MEDS: Polyethylene Glycol 3350 Powder 17 GM Packet PO PRN (08:17)
[2016-12-07] MEDS: Finasteride 5 MG Tab PO SCH (08:18)
[2016-12-07] MEDS: Hydrochlorothiazide/Triamterene 25-37.5 Tab PO SCH (08:18)
[2016-12-07] MEDS: Cephalexin 500 MG Cap PO SCH (08:18)
[2016-12-07] MEDS: Aspirin 81 MG Tab.Chew PO SCH (08:18)
[2016-12-07] MEDS: Docusate Sodium 100 MG Cap PO SCH (08:18)
[2016-12-07] MEDS: Triamcinolone Acetonide 0.025% Crm 15 GM Tube TOP PRN (09:03)
[2016-12-07] MEDS: oxyCODONE 5 MG Tab PO PRN (12:52)
[2016-12-07] MEDS: Furosemide 40 MG Tab PO SCH (13:02)
[2016-12-07] MEDS: Warfarin 5 MG Tab PO SCH (16:12)
[2016-12-08] MEDS: Polyvinyl Alcohol 1.4% Ophth Soln 15 ML Bottle EYEBOTH PRN (00:08)
[2016-12-08] MEDS: oxyCODONE 5 MG Tab PO PRN ×2 (00:50→20:35)
[2016-12-08] MEDS: Pantoprazole 40 MG Tab.CR PO SCH (06:42)
[2016-12-08] MEDS: Aspirin 81 MG Tab.Chew PO SCH (08:45)
[2016-12-08] MEDS: Docusate Sodium 100 MG Cap PO SCH (08:45)
[2016-12-08] MEDS: Hydrochlorothiazide/Triamterene 25-37.5 Tab PO SCH (08:45)
[2016-12-08] MEDS: Finasteride 5 MG Tab PO SCH (08:45)
[2016-12-08] MEDS: Furosemide 40 MG Tab PO SCH (12:42)
[2016-12-08] MEDS: Warfarin 5 MG, Warfarin 2.5 MG PO SCH ×2 (16:24)
[2016-12-08] MEDS: Alfuzosin 10 MG Tab.ER PO SCH (20:34)
[2016-12-09] MEDS: Pantoprazole 40 MG Tab.CR PO SCH (07:43)
[2016-12-09] MEDS: Docusate Sodium 100 MG Cap PO SCH (08:56)
[2016-12-09] MEDS: Aspirin 81 MG Tab.Chew PO SCH (08:56)
[2016-12-09] MEDS: Finasteride 5 MG Tab PO SCH (08:57)
[2016-12-09] MEDS: Hydrochlorothiazide/Triamterene 25-37.5 Tab PO SCH (08:57)
[2016-12-09] MEDS: Furosemide 40 MG Tab PO SCH (12:32)
[2016-12-09] MEDS: Warfarin 5 MG Tab PO SCH (15:56)
[2016-12-09] MEDS: oxyCODONE 5 MG Tab PO PRN (19:43)
[2016-12-09] MEDS: Polyvinyl Alcohol 1.4% Ophth Soln 15 ML Bottle EYEBOTH PRN (19:45)
[2016-12-10] MEDS: Pantoprazole 40 MG Tab.CR PO SCH (08:34)
[2016-12-10] MEDS: Aspirin 81 MG Tab.Chew PO SCH (08:34)
[2016-12-10] MEDS: Docusate Sodium 100 MG Cap PO SCH (08:34)
[2016-12-10] MEDS: Hydrochlorothiazide/Triamterene 25-37.5 Tab PO SCH (08:35)
[2016-12-10] MEDS: Finasteride 5 MG Tab PO SCH (08:35)
[2016-12-10] MEDS: Furosemide 40 MG Tab PO SCH (12:17)
[2016-12-10] MEDS: oxyCODONE 5 MG Tab PO PRN ×2 (16:02→20:27)
[2016-12-10] MEDS: Warfarin 5 MG, Warfarin 2.5 MG PO SCH ×2 (16:03)
[2016-12-10] MEDS: Alfuzosin 10 MG Tab.ER PO SCH (20:23)
[2016-12-11] MEDS: Pantoprazole 40 MG Tab.CR PO SCH (06:56)
--- NOTE | 2016-12-11 07:37 | PCM.PN ---
- General Info Date of Service: 12/11/16 Subjective Update: Feeling therapy is going well. Ambulating well. Doesn't like the narcotic pain pill. Would like to take ibuprofen or aspirin but is also on warfarin. Is allergic to acetaminophen. Had a BM yesterday, a little more difficult than usual. No CP or SOB. No N/V. Functional Status: Reports: Pain Controlled, Tolerating Diet, Ambulating, Urinating (no trouble emptying) - Patient Data Vitals - Most Recent: Last Vital Signs Temp 36.6 C 12/09/16 08:50 Pulse 97 12/10/16 08:00 Resp 16 12/10/16 08:00 BP 119/72 12/10/16 08:00 Pulse Ox 98 12/10/16 08:00 Weight - Most Recent: 70.488 kg Med Orders - Current: Current Medications Al Hydroxide/Mg Hydroxide (Mag-Al Susp) 30 ml PO Q2H PRN PRN Reason: Dyspepsia Last Admin: 12/07/16 08:17 Dose: 30 ml Alfuzosin HCl (Uroxatral) 20 mg PO Q48H ON LICENSE OF [facility] Last Admin: 12/10/16 20:23 Dose: 20 mg Artificial Tears (Liquitears 1.4% Ophth Soln) 0 ml EYEBOTH DAILY PRN PRN Reason: Dry Eyes Last Admin: 12/09/16 19:45 Dose: 1 drop Aspirin (Aspirin) 81 mg PO DAILY ON LICENSE OF [facility] Last Admin: 12/10/16 08:34 Dose: 81 mg Bisacodyl (Dulcolax) 10 mg PO DAILY PRN PRN Reason: Constipation Last Admin: 12/01/16 09:01 Dose: 10 mg Bisacodyl (Dulcolax) 10 mg RECTAL DAILY PRN PRN Reason: Constipation Last Admin: 11/28/16 08:40 Dose: 10 mg Docusate Sodium (Colace) 200 mg PO DAILY ON LICENSE OF [facility] Last Admin: 12/10/16 08:34 Dose: 200 mg Finasteride (Proscar) 5 mg PO DAILY ON LICENSE OF [facility] Last Admin: 12/10/16 08:35 Dose: 5 mg Furosemide (Lasix) 40 mg PO DAILY@1200 ON [facility] OF [facility] Last Admin: 12/10/16 12:17 Dose: 40 mg Oxycodone HCl (Oxycodone) 5 mg PO Q4H PRN PRN Reason: SEVERE PAIN Last Admin: 12/10/16 20:27 Dose: 5 mg Pantoprazole Sodium (Protonix) 40 mg PO DAILY@0730 ON [facility] OF [facility] Last Admin: 12/11/16 06:56 Dose: 40 mg Polyethylene Glycol (Miralax) 17 gm PO BEDTIME PRN PRN Reason: Constipation Last Admin: 12/07/16 08:17 Dose: 17 gm Triamcinolone Acetonide (Triamcinolone Acetonide 0.025%) 0 gm TOP TID PRN PRN Reason: Rash Last Admin: 12/07/16 09:03 Dose: 1 applic Triamterene/HCTZ (Maxzide 25-37.5 Mg) 1 each PO DAILY ON [facility] OF [facility] Last Admin: 12/10/16 08:35 Dose: 1 each Warfarin Sodium (Coumadin Sliding Scale) 0 each PO ASDIRECTED ON LICENSE OF [facility] Warfarin Sodium (Coumadin) 5 mg PO TuThSa@1600 ON [facility] OF [facility] Last Admin: 12/09/16 15:56 Dose: 5 mg Warfarin Sodium 5 mg/ Warfarin (Sodium 2.5 mg) 7.5 mg PO SuMoWeFr@1600 ON [facility] OF [facility] Last Admin: 12/10/16 16:03 Dose: 7.5 mg Discontinued Medications Alfuzosin HCl (Uroxatral) 10 mg PO BEDTIME ON LICENSE OF [facility] Last Admin: 11/25/16 21:37 Dose: 10 mg Artificial Tears (Refresh Tears 0.5%) 0 ml EYEBOTH DAILY PRN PRN Reason: Dry Eyes Cephalexin (Keflex) 500 mg PO TID ON LICENSE OF [facility] Stop: 12/07/16 10:01 Last Admin: 12/07/16 08:18 Dose: 500 mg Promethazine HCl (Phenergan) 25 mg PO NOW ONE Stop: 11/28/16 19:00 Last Admin: 11/28/16 20:06 Dose: Not Given Triamcinolone Acetonide (Triamcinolone Acetonide 0.1% Crm) Confirm Administered Dose 15 gm .ROUTE .STK-MED ONE Stop: 12/03/16 06:44 Last Admin: 12/03/16 10:06 Dose: Not Given Warfarin Sodium (Coumadin) 10 mg PO 1600 ON [facility] Stop: 11/25/16 20:00 Last Admin: 11/25/16 15:38 Dose: 10 mg Warfarin Sodium (Coumadin) 5 mg PO 1600 [facility] Stop: 11/26/16 20:00 Last Admin: 11/26/16 16:46 Dose: 5 mg Warfarin Sodium (Coumadin) 5 mg PO 1600 [facility] Stop: 11/27/16 20:30 Last Admin: 11/27/16 16:09 Dose: 5 mg Warfarin Sodium (Coumadin) 5 mg PO 1600 [facility] Stop: 11/28/16 16:01 Last Admin: 11/28/16 15:47 Dose: 5 mg Warfarin Sodium (Coumadin) 7.5 mg PO 1600 [facility] Stop: 11/29/16 20:30 Last Admin: 11/29/16 15:41 Dose: 7.5 mg Warfarin Sodium (Coumadin) 10 mg PO 1600 [facility] Stop: 11/30/16 20:30 Last Admin: 11/30/16 15:56 Dose: 10 mg Warfarin Sodium 5 mg/ Warfarin (Sodium 2.5 mg) 7.5 mg PO 1600 ON [facility] Stop: 12/01/16 20:00 Last Admin: 12/01/16 17:25 Dose: 7.5 mg - Exam General: Alert, Oriented, Cooperative, No Acute Distress HEENT: Pupils Equal, Pupils Reactive Neck: Supple Lungs: Clear to Auscultation, Normal Respiratory Effort Cardiovascular: No Murmurs, Irregular Rhythm GI/Abdominal Exam: Normal Bowel Sounds, Soft, Non-Tender, No Distention Back Exam: Normal Inspection Extremities: Normal Inspection, No Pedal Edema Skin: Warm, Dry, Intact Psy/Mental Status: Alert, Normal Affect, Normal Mood - Problem List & Annotations (1) Pelvic fracture SNOMED Code(s): 43863298 Code(s): S32.9XXA - FRACTURE OF UNSP PARTS OF LUMBOSACRAL SPINE AND PELVIS, INIT Status: Acute Current Visit: Yes Annotation/Comment:: PT/OT, pain management. Doing well. Likely discharge on Tuesday of next week. (2) Left scapula fracture SNOMED Code(s): 6092279 Code(s): S42.102A - FRACTURE OF UNSP PART OF SCAPULA, LEFT SHOULDER, INIT Status: Acute Current Visit: Yes Annotation/Comment:: PT/OT, pain management. Pain well controlled. (3) Weakness SNOMED Code(s): 63929813 Code(s): R53.1 - WEAKNESS Status: Acute Current Visit: Yes Annotation/ Comment:: PT/OT, patient excellent rehab candidate. (4) Chronic anticoagulation SNOMED Code(s): 259738610 Code(s): Z79.01 - RESIDENTIAL (CURRENT) USE OF ANTICOAGULANTS Status: Acute Current Visit: Yes Annotation/Comment:: Pharmacy to follow, 2-3 goal for hx of DVT. Also A fib. Patient wondering about stopping the warfarin. Discussed a fib stroke risk, with Chadsvasc of 3, his risk without anticoagulation would be 4.3%, risk with asa alone would be 3.4%, and with warfarin is 1.4% (sparctool ). This is annual risk so would have cumulative 10 year risk with no anticoagulation of stroke at 43%. Discussed this at length. He can continue to discuss with his Dr. The DVT risk would be a separate issue and at 86 he'll need to consider this. He is an active man. (5) Encounter for monitoring diuretic therapy SNOMED Code(s): 976681018 Code(s): Z51.81 - ENCOUNTER FOR THERAPEUTIC DRUG LEVEL MONITORING; Z79.899 - OTHER [employer]N COOKER (CURRENT) DRUG THERAPY Status: Acute Current Visit: Yes Annotation/Comment:: continue current diuretics. He would like to try taking lasix at noon for less night voiding. Not clear to me if he has CHF as not on his list. (6) BPH associated with nocturia SNOMED Code(s): 139707685 Code(s): N40.1 - BENIGN PROSTATIC HYPERPLASIA WITH LOWER URINARY TRACT SYMP; R35.1 - NOCTURIA Status: Acute Current Visit: Yes Annotation/Comment:: continue home meds. (7) Inadequate pain control SNOMED Code(s): 58982291 Code(s): R52 - PAIN, UNSPECIFIED Status: Acute Current Visit: Yes Annotation/Comment:: Patient would like to take NSAID. Discussed increased bleeding risk. Narcotic makes him constipated and nauseated. Would suggest we continue narcotic if needed at bedtime and use celebrex if needed once daily. Watch for signs/sxs of bleeding. - Problem List Review Problem List Initiated/Reviewed/Updated: Yes - Plan Plan:: Continue current care. D/C Tuesday to home.
[2016-12-11] MEDS ORDERED: Celecoxib 100 MG Cap PO PRN (07:44)
[2016-12-11] MEDS: Hydrochlorothiazide/Triamterene 25-37.5 Tab PO SCH (08:30)
[2016-12-11] MEDS: Finasteride 5 MG Tab PO SCH (08:30)
[2016-12-11] MEDS: Aspirin 81 MG Tab.Chew PO SCH (08:30)
[2016-12-11] MEDS: Docusate Sodium 100 MG Cap PO SCH (08:30)
[2016-12-11] MEDS: Furosemide 40 MG Tab PO SCH (13:01)
[2016-12-11] MEDS: Warfarin 5 MG Tab PO SCH (16:01)
[2016-12-11] MEDS: oxyCODONE 5 MG Tab PO PRN (23:16)
[2016-12-12] MEDS: Polyvinyl Alcohol 1.4% Ophth Soln 15 ML Bottle EYEBOTH PRN ×2 (01:02→19:47)
[2016-12-12] MEDS: Pantoprazole 40 MG Tab.CR PO SCH (06:45)
[2016-12-12] MEDS: Aspirin 81 MG Tab.Chew PO SCH (08:23)
[2016-12-12] MEDS: Docusate Sodium 100 MG Cap PO SCH (08:23)
[2016-12-12] MEDS: Hydrochlorothiazide/Triamterene 25-37.5 Tab PO SCH (08:23)
[2016-12-12] MEDS: Finasteride 5 MG Tab PO SCH (08:24)
[2016-12-12] MEDS: Furosemide 40 MG Tab PO SCH (12:45)
[2016-12-12] MEDS: Warfarin 5 MG, Warfarin 2.5 MG PO SCH ×2 (16:29)
[2016-12-12] MEDS: Alfuzosin 10 MG Tab.ER PO SCH (20:00)
[2016-12-13] MEDS: Pantoprazole 40 MG Tab.CR PO SCH (06:52)
[2016-12-13] MEDS: Finasteride 5 MG Tab PO SCH (11:14)
[2016-12-13] MEDS: Docusate Sodium 100 MG Cap PO SCH (11:14)
[2016-12-13] MEDS: Hydrochlorothiazide/Triamterene 25-37.5 Tab PO SCH (11:14)
[2016-12-13] MEDS: Aspirin 81 MG Tab.Chew PO SCH (11:14)
[2016-12-13] MEDS: Furosemide 40 MG Tab PO SCH (11:15)
[2016-12-13] MEDS ORDERED: Potassium Chloride 20 MEQ Tab.ER PO SCH (12:00)
[2016-12-13] MEDS: Potassium Chloride 20 MEQ Tab.ER PO SCH ×3 (12:23→20:16)
--- NOTE | 2016-12-13 14:20 | PCM.SN ---
- Free Text/Narrative Note: Mr. Reynolds is an 86-year-old male on swing bed status who was admitted on 2016 for rehabilitation after a fall with a pelvic fracture. He's been doing very well. He is taking a home visit today. Labs were rechecked this morning and showed a potassium of 2.3. In talking with the patient at some point in the past he was previously on potassium supplementation this was apparently missed as he came into our setting from a previous hospital. He was given 40 mEq of oral potassium this morning. He tolerated that well. He'll have 4 doses and he will check what his normal home dose is before he returns so that we can get that restarted at discharge. He also had a mildly elevated fasting glucose, and LFTs and total bili were slightly elevated. This will need followed up in the outpatient setting. Today he is in good spirits. No chest pain, no shortness of breath, no nausea, feels well. A little anxious about going home. Will be back tonight and if all goes well discharging to home tomorrow. We'll recheck blood work for potassium in the morning before he leaves.
[2016-12-13] MEDS: Warfarin 5 MG, Warfarin 2.5 MG PO SCH ×2 (16:47)
[2016-12-13] MEDS: oxyCODONE 5 MG Tab PO PRN (20:21)
[2016-12-14] MEDS: Pantoprazole 40 MG Tab.CR PO SCH (07:33)
[2016-12-14 07:35] VITALS: BP 135/84
[2016-12-14] MEDS: Potassium Chloride 20 MEQ Tab.ER PO SCH (09:17)
[2016-12-14] MEDS: Finasteride 5 MG Tab PO SCH (09:17)
[2016-12-14] MEDS: Hydrochlorothiazide/Triamterene 25-37.5 Tab PO SCH (09:17)
[2016-12-14] MEDS: Polyvinyl Alcohol 1.4% Ophth Soln 15 ML Bottle EYEBOTH PRN (09:18)
[2016-12-14] MEDS: Docusate Sodium 100 MG Cap PO SCH (09:19)
[2016-12-14] MEDS: Aspirin 81 MG Tab.Chew PO SCH (09:19)
--- NOTE | 2016-12-14 10:48 | PCM.DCSUM1 ---
Discharge Summary - Hospital Course Free Text/Narrative:: Patient is an 86-year-old male who was picking apples for maturity on a ladder and he fell onto the left side of his body. He sustained a left superior and inferior pubic ramus fractures and left ischial fractures as well as a rectal sheath hematoma. He was hospitalized from 11/19/2016 until 11/24 when he was discharged to return here for physical therapy and occupational therapy. He also sustained a left scapular fracture. Hospital course: Patient did very well during his hospital stay. Tolerated rehabilitation well. Did not care for the narcotics so was started on Celebrex for pain as he is allergic to Tylenol. Risk of bleeding was discussed at length. Patient's labs also showed some mild abnormalities with a mildly elevated fasting glucose, hypokalemia with a potassium of 2.3 as his potassium supplement had been inadvertently stopped which she takes at home. He was given oral supplementation while in the hospital which brought him up to 3.2 at discharge and he was advised to continue his home supplement when he returns home. His LFTs and total bilirubin were just very slightly elevated with lab check and this could be followed up as an outpatient. Question was raised as to whether or not the patient still should be on warfarin after he has completed his course of therapy for his pelvic fracture. He is wondering if it's really necessary. Reviewed stroke risk at length. Unclear whether his DVT was provoked or not. This is a separate issue for anticoagulation. Recommended he discuss this with his primary care provider. See recommendations by problem below. HPI Initial Comments: See above. On the day of discharge, patient was seen and evaluated. He was seen for pelvic fracture and scapular fracture, need for rehabilitation, which is his primary reason for home care services. He will need ongoing physical therapy and occupational therapy for continued mobilization at home. He is homebound as he is unable to drive currently because of his injury. Anticipate he will need home health for 4-6 weeks. - Discharge Data Discharge Date: 12/14/16 Discharge Disposition: Home, W Home Health Agency 06 Condition: Good - Discharge Diagnosis/Problem(s) (1) Pelvic fracture SNOMED Code(s): 00816669 ICD Code: S32.9XXA - FRACTURE OF UNSP PARTS OF LUMBOSACRAL SPINE AND PELVIS, INIT Status: Acute Current Visit: Yes Problem Details: Ready for discharge to home health for continued PT, education on safety at home and falls prevention and homebound due to continued healing pelvic fracture. (2) Left scapula fracture SNOMED Code(s): 7632955 ICD Code: S42.102A - FRACTURE OF UNSP PART OF SCAPULA, LEFT SHOULDER, INIT Status: Acute Current Visit: Yes Problem Details: Home health to follow for PT. (3) Weakness SNOMED Code(s): 80098545 ICD Code: R53.1 - WEAKNESS Status: Acute Current Visit: Yes Problem Details: Continue outpatient PT. Much improved. (4) Chronic anticoagulation SNOMED Code(s): 175455675 ICD Code: Z79.01 - RESEARCH DEVELOPMENT MANAGER (CURRENT) USE OF ANTICOAGULANTS Status: Acute Current Visit: Yes Problem Details: 2-3 goal for hx DVT, unsure if provoked , and A fib. Reviewed stopping at length during hospital stay and will defer to patient's outpatient physician. (5) Encounter for monitoring diuretic therapy SNOMED Code(s): 159585776 ICD Code: Z51.81 - ENCOUNTER FOR THERAPEUTIC DRUG LEVEL MONITORING; Z79.899 - OTHER RETIREMENT (CURRENT) DRUG THERAPY Status: Acute Current Visit: Yes Problem Details: Continue current diuretic therapy. (6) BPH associated with nocturia SNOMED Code(s): 853537992 ICD Code: N40.1 - BENIGN PROSTATIC HYPERPLASIA WITH LOWER URINARY TRACT SYMP ; R35.1 - NOCTURIA Status: Acute Current Visit: Yes Problem Details: continue home meds. (7) Inadequate pain control SNOMED Code(s): 04669553 ICD Code: R52 - PAIN, UNSPECIFIED Status: Acute Current Visit: Yes Problem Details: Patient started on celebrex here. Would suggest recheck labs with PCP in one week including BMP, Hgb and consider stopping celebrex as soon as pain controlled. Patient not a candidate for tylenol due to allergy and did not like the way the narcotic made him feel. Patient aware at increased risk for bleeding. - Patient Summary/Data Consults: Consultations 11/24/16 13:20 Consult to Partner Marketing Intern [CONS] Routine Comment: Physician Instructions: OT Evaluation and Treatment [CONS] Routine Please Evaluate and Treat. OT Reason for Consult: weakness This query below is only for informational purposes and is not editable. Admission Diagnosis/Problem: Weakness PT Evaluation and Treatment [CONS] Routine Please Evaluate and Treat. PT Reason for Consult: weakness This query below is only for informational purposes and is not editable. Admission Diagnosis/Problem: Weakness - Patient Instructions Diet: Heart Healthy Diet, Low Sodium Activity: Full Weight Bearing, No Strenuous Activities (No climbing ladders or shoveling snow until completely recovered. ) Driving: Do Not Drive (Until completely recovered.) Other/Special Instructions: Restart your home potassium supplement. Celebrex increases your risk of bleeding. Discontinue baby aspirin and do not take any other NSAIDs with your Celebrex. - Discharge Plan Prescriptions/Med Rec: Bisacodyl [Dulcolax] 10 mg PO DAILY PRN #30 tablet PRN Reason: Constipation Celecoxib [CeleBREX] 100 mg PO BID PRN #30 cap PRN Reason: Pain oxyCODONE 5 mg PO Q4H PRN #5 tablet PRN Reason: Pain Home Medications: Home Meds Calcium Carb & Citrate/Vit D3 [Calcium + D3 ER Tablet] 1 each PO DAILY 07/18/13 [History] Finasteride [Proscar] 5 mg PO DAILY 07/18/13 [History] Flaxseed Oil [Flaxseed] 1,000 mg PO BEDTIME 07/18/13 [History] Gluc 2KCl/Chondr/Noe Hy/Hy Ac [Glucosamine & Chondroitin Cap] 1 each PO BID 12/21 [History] Multivitamin [Multivitamins] 1 each PO DAILY 07/18/13 [History] Nelsonia-3 Fatty Acids [Nelsonia-3] 1,000 mg PO WITHDINNER 07/18/13 [History] Omeprazole 20 mg PO ACDINNER 07/18/13 [History] Triamterene/Hydrochlorothiazid [Triamterene-HCTZ 37.5-25 MG] 1 cap PO DAILY 12/21 [History] Vitamin E 200 units PO DAILY 12/11/13 [History] Warfarin Sodium [Jantoven] 7.5 mg PO SUMOWEFR 01/17/14 [History] Docusate Sodium 200 mg PO DAILY 11/25/14 [History] Alfuzosin HCl [Alfuzosin HCl ER] 20 mg PO Q48H 11/19/16 [History] Triamcinolone Acetonide [Triamcinolone Acetonide 0.025%] 1 applic TOP BID PRN [History] Warfarin [Coumadin] 5 mg PO TUTHSA 11/24/16 [History] Polyvinyl Alcohol/Povidone [Artificial Tears Drops] 1 drop EYEBOTH DAILY PRN [History] Alfuzosin [Uroxatral] 20 mg PO Q48H tab.er 12/14/16 [Rx] Bisacodyl [Dulcolax] 10 mg PO DAILY PRN #30 tablet 12/14/16 [Rx] Celecoxib [CeleBREX] 100 mg PO BID PRN #30 cap 12/14/16 [Rx] Furosemide [Lasix] 40 mg PO DAILY@1200 tablet 12/14/16 [Rx] Polyvinyl Alcohol [LiquiTears 1.4% Ophth Soln] 0 ml EYEBOTH DAILY PRN bottle [Rx] Triamcinolone Acetonide [Triamcinolone Acetonide 0.025%] 0 gm TOP TID PRN tube 12/14/16 [Rx] Warfarin Sliding Scale [Coumadin Sliding Scale] 5 mg PO ASDIRECTED tablet 12/14 [Rx] Warfarin [Coumadin] 5 mg PO TuThSa@1600 tablet 12/14/16 [Rx] Warfarin [Coumadin] 7.5 mg PO SuMoWeFr@1600 tablet 12/14/16 [Rx] Warfarin [Coumadin] 7.5 mg PO SuMoWeFr@1600 tablet 12/14/16 [Rx] oxyCODONE 5 mg PO Q4H PRN #5 tablet 12/14/16 [Rx] Patient Handouts: Fall Prevention in the Home, [place]-ae-Abra, Bisacodyl tablets and capsules, Oxycodone tablets or capsules, Celecoxib capsules, Simple Pelvic Fracture, Adult - Discharge Summary/Plan Comment DC Time >30 min.: Yes - General Info Date of Service: 12/14/16 Subjective Update: On the day of discharge, pain was well controlled. No chest pain, no shortness breath, no nausea, no vomiting. No diarrhea. No bleeding. Ready for discharge. Home visit yesterday went very well. - Patient Data Vitals - Most Recent: Last Vital Signs Temp 36.4 C 12/14/16 07:30 Pulse 88 12/14/16 07:30 Resp 16 12/14/16 07:30 BP 135/84 12/14/16 07:30 Pulse Ox 98 12/14/16 07:30 Weight - Most Recent: 70.488 kg I&O - Last 24 hours: Intake & Output 12/13/16 12/14/16 12/14/16 22:59 06:59 14:59 Output Total 325 Balance -325 Lab Results - Last 24 hrs: Laboratory Results - last 24 hr 12/14/16 Range/Units 06:45 Sodium 135 (135-145) mmol/L Potassium 3.2 L (3.5-5.3) mmol/L Chloride 94 L D (100-110) mmol/L Carbon Dioxide 32 H (23-29) mmol/L BUN 29 H (8-23) mg/dL Creatinine 0.9 (0.6-1.3) mg/dL Est Cr Clr Drug Dosing 57.65 mL/min Estimated GFR (MDRD) > 60 (>60) BUN/Creatinine Ratio 32.2 H (9-20) Glucose 119 H (80-116) mg/dL Calcium 8.5 L (8.6-10.2) mg/dL Med Orders - Current: Current Medications Al Hydroxide/Mg Hydroxide (Mag-Al Susp) 30 ml PO Q2H PRN PRN Reason: Dyspepsia Last Admin: 12/07/16 08:17 Dose: 30 ml Alfuzosin HCl (Uroxatral) 20 mg PO Q48H [facility] Last Admin: 12/12/16 20:00 Dose: 20 mg Artificial Tears (Liquitears 1.4% Ophth Soln) 0 ml EYEBOTH DAILY PRN PRN Reason: Dry Eyes Last Admin: 12/14/16 09:18 Dose: 1 drop Aspirin (Aspirin) 81 mg PO DAILY [facility] Last Admin: 12/14/16 09:19 Dose: 81 mg Bisacodyl (Dulcolax) 10 mg PO DAILY PRN PRN Reason: Constipation Last Admin: 12/01/16 09:01 Dose: 10 mg Bisacodyl (Dulcolax) 10 mg RECTAL DAILY PRN PRN Reason: Constipation Last Admin: 11/28/16 08:40 Dose: 10 mg Celecoxib (Celebrex) 100 mg PO BID PRN PRN Reason: Pain Last Admin: 12/12/16 16:34 Dose: 100 mg Docusate Sodium (Colace) 200 mg PO DAILY [facility] Last Admin: 11/07/17 09:19 Dose: 200 mg Finasteride (Proscar) 5 mg PO DAILY [facility] Last Admin: 12/14/16 09:17 Dose: 5 mg Furosemide (Lasix) 40 mg PO DAILY@1200 [facility] Last Admin: 12/13/16 11:15 Dose: 40 mg Oxycodone HCl (Oxycodone) 5 mg PO Q4H PRN PRN Reason: SEVERE PAIN Last Admin: 12/13/16 20:21 Dose: 5 mg Pantoprazole Sodium (Protonix) 40 mg PO DAILY@0730 [facility] Last Admin: 12/14/16 07:33 Dose: 40 mg Polyethylene Glycol (Miralax) 17 gm PO BEDTIME PRN PRN Reason: Constipation Last Admin: 12/07/16 08:17 Dose: 17 gm Triamcinolone Acetonide (Triamcinolone Acetonide 0.025%) 0 gm TOP TID PRN PRN Reason: Rash Last Admin: 12/07/16 09:03 Dose: 1 applic Triamterene/HCTZ (Maxzide 25-37.5 Mg) 1 each PO DAILY [facility] Last Admin: 12/14/16 09:17 Dose: 1 each Warfarin Sodium (Coumadin Sliding Scale) 0 each PO ASDIRECTED [facility] Warfarin Sodium (Coumadin) 5 mg PO TuThSa@1600 [facility] Last Admin: 12/11/16 16:01 Dose: 5 mg Warfarin Sodium 5 mg/ Warfarin (Sodium 2.5 mg) 7.5 mg PO SuMoWeFr@1600 [facility] Last Admin: 12/13/16 16:47 Dose: 7.5 mg Discontinued Medications Alfuzosin HCl (Uroxatral) 10 mg PO BEDTIME [facility] Last Admin: 11/25/16 21:37 Dose: 10 mg Artificial Tears (Refresh Tears 0.5%) 0 ml EYEBOTH DAILY PRN PRN Reason: Dry Eyes Cephalexin (Keflex) 500 mg PO TID [facility] Stop: 12/07/16 10:01 Last Admin: 12/07/16 08:18 Dose: 500 mg Potassium Chloride (Klor-Con M20) 40 meq PO TID [facility] Stop: 12/14/16 09:01 Last Admin: 12/14/16 09:17 Dose: 40 meq Promethazine HCl (Phenergan) 25 mg PO NOW ONE Stop: 11/28/16 19:00 Last Admin: 11/28/16 20:06 Dose: Not Given Triamcinolone Acetonide (Triamcinolone Acetonide 0.1% Crm) Confirm Administered Dose 15 gm .ROUTE .STK-MED ONE Stop: 12/03/16 06:44 Last Admin: 12/03/16 10:06 Dose: Not Given Warfarin Sodium (Coumadin) 10 mg PO 1600 [facility] Stop: 11/25/16 20:00 Last Admin: 11/25/16 15:38 Dose: 10 mg Warfarin Sodium (Coumadin) 5 mg PO 1600 [facility] Stop: 11/26/16 20:00 Last Admin: 11/26/16 16:46 Dose: 5 mg Warfarin Sodium (Coumadin) 5 mg PO 1600 [facility] Stop: 11/27/16 20:30 Last Admin: 11/27/16 16:09 Dose: 5 mg Warfarin Sodium (Coumadin) 5 mg PO 1600 [facility] Stop: 11/28/16 16:01 Last Admin: 11/28/16 15:47 Dose: 5 mg Warfarin Sodium (Coumadin) 7.5 mg PO 1600 [facility] Stop: 11/29/16 20:30 Last Admin: 11/29/16 15:41 Dose: 7.5 mg Warfarin Sodium (Coumadin) 10 mg PO 1600 [facility] Stop: 11/30/16 20:30 Last Admin: 11/30/16 15:56 Dose: 10 mg Warfarin Sodium 5 mg/ Warfarin (Sodium 2.5 mg) 7.5 mg PO 1600 [facility] Stop: 12/01/16 20:00 Last Admin: 12/01/16 17:25 Dose: 7.5 mg - Exam General: Reports: Alert, Oriented, Cooperative, No Acute Distress HEENT: Reports: Pupils Equal, Pupils Reactive Neck: Reports: Supple Lungs: Reports: Clear to Auscultation, Normal Respiratory Effort Cardiovascular: Reports: Regular Rate, Regular Rhythm, No Murmurs GI/Abdominal Exam: Normal Bowel Sounds, Soft, Non-Tender, No Distention Back Exam: Reports: Normal Inspection (no scapular tenderness) Extremities: Normal Inspection, No Pedal Edema Skin: Reports: Warm, Dry, Intact *Q Meaningful Use (DIS) - VTE *Q VTE Criteria *Q: - Stroke *Q Stroke Criteria *Q: - AMI *Q AMI Criteria *Q:
[2016-12-14] MEDS: oxyCODONE 5 MG Tab PO PRN (13:26)
[2016-12-14] MEDS: Furosemide 40 MG Tab PO SCH (13:26)
== END 2016-12-14 13:30 | disposition home health service (06) | DRG 948 ==
LOC: FB.MS 13:26
PROVIDERS: ADMIT Family Medicine; ATTEND Family Medicine
DX: R53.1 Weakness (principal); S32.602D Unspecified fracture of left ischium, subsequent encounter for fracture with routine healing; W11.XXXD Fall on and from ladder, subsequent encounter; S32.592D Other specified fracture of left pubis, subsequent encounter for fracture with routine healing; S42.102D Fracture of unspecified part of scapula, left shoulder, subsequent encounter for fracture with routine healing; Z66 Do not resuscitate; I10 Essential (primary) hypertension; I48.91 Unspecified atrial fibrillation; Z79.01 Long term (current) use of anticoagulants; Z51.81 Encounter for therapeutic drug level monitoring; Z79.899 Other long term (current) drug therapy; M19.90 Unspecified osteoarthritis, unspecified site; N40.1 Benign prostatic hyperplasia with lower urinary tract symptoms; R35.1 Nocturia; E87.6 Hypokalemia; Z86.718 Personal history of other venous thrombosis and embolism; H91.90 Unspecified hearing loss, unspecified ear; Z79.82 Long term (current) use of aspirin; Z88.6 Allergy status to analgesic agent; Z88.5 Allergy status to narcotic agent
CPT/HCPCS: 36415; 51702; 51798; 80048; 80053; 85025; 85610; 97110-GO; 97110-GP; 97116-GP; 97161-GP; 97165-GO; 97530-GO; 97530-GO-KX; 97530-GP; 97535-GO; A9270-GY